=== PATIENT | male | born 1950 | race Caucasian/White ===

== ENCOUNTER 2016-11-05 07:45 | Emergency (ER) | payer MEDICARE, BC ==
[2016-11-05] MEDS: SODIUM CHLORIDE 0.9% FLUSH 10 ML SOL IV PRN ×2 (08:10→09:30)
[2016-11-05 08:30] LABS: HEMATOCRIT 63 % (39-53); MEAN CORPUSCULAR HGB CONC 34.3 gm/dl (32.0-36.0); MEAN CORPUSCULAR VOLUME 86 fL (80-100)
[2016-11-05] MEDS ORDERED: ONDANSETRON HCL 4 MG/2 ML SOL IV ONE (08:41)
[2016-11-05] MEDS ORDERED: SODIUM CHLORIDE 0.9% 1000ML 1,000 ML IV ONE ×5 (08:42→10:50)
[2016-11-05] MEDS ORDERED: ONDANSETRON HCL 4 MG/2 ML SOL ONE (08:47)
[2016-11-05 08:54] LABS: ALBUMIN 5.1 gm/dl (3.4-5.0); CALCIUM 12.2 mg/dl (8.5-10.1); MAGNESIUM 2.4 mg/dl (1.8-2.4)
[2016-11-05 09:02] LABS: BASOPHILS % (MANUAL) 0 % (0-3); EOSINOPHILS % (MANUAL) 0 % (0-9); LYMPHOCYTES % (MANUAL) 19 % (10-50); NORMAL RBCS PRESENT
[2016-11-05 09:41] VITALS: TEMP 96.6
[2016-11-05 11:11] LABS: HEMATOCRIT 57 % (39-53); MEAN CORPUSCULAR HGB CONC 33.2 gm/dl (32.0-36.0); MEAN CORPUSCULAR VOLUME 87 fL (80-100)
[2016-11-05 11:21] LABS: CALCIUM 9.6 mg/dl (8.5-10.1); POTASSIUM 4.1 mMol/L (3.5-5.1)
[2016-11-05 11:27] LABS: BASOPHILS % (MANUAL) 0 % (0-3); EOSINOPHILS % (MANUAL) 0 % (0-9); LYMPHOCYTES % (MANUAL) 12 % (10-50); NORMAL RBCS PRESENT
[2016-11-05] MEDS ORDERED: ERTAPENEM SODIUM 1 GM PDS ONE (11:30)
[2016-11-05 15:50] VITALS: BP 153/95; PULSE 91; RESP 26; O2SAT 95
[2016-11-06] MEDS ORDERED: ERTAPENEM SODIUM 1 GM PDS 1 GM in SODIUM CHLORIDE 0.9% 50 ML 50 ML IV SCH (09:00)
== END 2016-11-05 11:43 | disposition short-term general hospital (02) | DRG 393 ==
LOC: ED 07:45
DX: K42.0 Umbilical hernia with obstruction, without gangrene (principal); N17.0 Acute kidney failure with tubular necrosis; M62.82 Rhabdomyolysis; D75.1 Secondary polycythemia; E86.0 Dehydration; K74.60 Unspecified cirrhosis of liver; K80.20 Calculus of gallbladder without cholecystitis without obstruction; N28.89 Other specified disorders of kidney and ureter; H69.80 Other specified disorders of Eustachian tube, unspecified ear; R79.89 Other specified abnormal findings of blood chemistry; D72.825 Bandemia
CPT/HCPCS: 36415; 70450; 71020; 74020; 74176; 80048; 80053; 82150; 82550; 83735; 83880; 84484; 85007; 85027; 93005; 93306; 99285; J1335; J2405